=== PATIENT | male | born 1965 | race Two or more races ===

== ENCOUNTER 2016-09-15 07:20 | Emergency (ER) | payer OTHER ==
[~2016-09-15] VITALS: Ht 165.1 cm; Wt 65.8 kg
--- NOTE | 2016-09-15 07:30 | NUR ---
AAOX3, CAME TO ER C/O NAUSEA AND "FEELS LIKE STOMACH ACID" SINCE LAST NIGHT AFTER DRINKING WINE. RESP IS EVEN AND UNLABORED. SKIN IS WARM AND NON DIAPHORETIC. AWAITING MD FOR EVAL.
[2016-09-15] MEDS ORDERED: IV NS 0.9% 1,000 ML ONE (07:35)
[2016-09-15] MEDS ORDERED: IV SET PRIMARY PUMP SET 1 EA INFUS.SET MC ONE (07:35)
[2016-09-15] MEDS ORDERED: PANTOPRAZOLE 40 MG VIAL ONE (07:35)
[2016-09-15] MEDS ORDERED: ONDANSETRON HCL/PF 4 MG/2 ML VIAL ONE (07:35)
[2016-09-15 07:55] LABS: BASOPHILS # (AUTO) 0.1 /CMM (0.0-0.2); BASOPHILS % (AUTO) 0.6 % (0.0-2.0); EOSINOPHILS # (AUTO) 0.1 /CMM (0.0-0.7); EOSINOPHILS % (AUTO) 0.6 % (0.0-6.0); HEMATOCRIT 52 % (39-51); HEMOGLOBIN 17.7 g/dL (13.5-17.5); LYMPHOCYTES # (AUTO) 3.3 /CMM (0.8-4.8); LYMPHOCYTES % (AUTO) 30.1 % (20.0-44.0); MEAN CORPUSCULAR HEMOGLOBIN 30 PG (26.0-33.0); MEAN CORPUSCULAR HGB CONC 34 g/dl (31.0-36.0); MEAN CORPUSCULAR VOLUME 88 fL (80-96); MONOCYTES # (AUTO) 0.7 /CMM (0.1-1.30); MONOCYTES % (AUTO) 6.3 % (2.0-12.0); NEUTROPHILS # (AUTO) 6.7 /CMM (1.8-8.9); NEUTROPHILS % (AUTO) 62.4 % (43.0-81.0); PLATELET COUNT (AUTO) 184 /CMM (150-450); RED BLOOD CELL COUNT(AUTO) 5.84 MIL/uL (4.5-6.0); WHITE BLOOD COUNT (AUTO) 10.8 K/uL (4.3-11.0)
--- NOTE | 2016-09-15 07:55 | NUR ---
LAC #18 IV ACCESS. BLOOD SAMPLE COLLECTED SENT TO LAB
[2016-09-15] MEDS ORDERED: ONDANSETRON HCL/PF 4 MG/2 ML VIAL IVP ONE (08:00)
[2016-09-15] MEDS ORDERED: PANTOPRAZOLE 40 MG VIAL IV ONE (08:00)
[2016-09-15] MEDS ORDERED: IV NS 0.9% 1,000 ML BAG IV ONE (08:00)
[2016-09-15 08:05] LABS: CALCIUM, SERUM 8.5 mg/dL (8.5-10.1); CREATININE 1.2 mg/dL (0.6-1.3); POTASSIUM 3.9 mmol/L (3.5-5.1)
[2016-09-15 08:11] LABS: ALBUMIN 4.3 g/dL (3.4-5.0); BILIRUBIN,DIRECT 0.2 mg/dL (0.0-0.2); TOTAL PROTEIN, SERUM 7.6 g/dL (6.4-8.2)
[2016-09-15] MEDS ORDERED: PROMETHAZINE HCL 25 MG/ML AMPUL ONE (08:21)
[2016-09-15] MEDS ORDERED: PROMETHAZINE HCL 25 MG/ML AMPUL IV ONE (08:30)
--- NOTE | 2016-09-15 08:31 | NUR ---
URINE SAMPLE COLLECTED SENT TO LAB
[2016-09-15 08:37] VITALS: BP 122/68
--- NOTE | 2016-09-15 08:37 | NUR ---
Patient discharged to home in stable condition. Written and verbal after care instructions given. Patient verbalizes understanding of instruction.
--- NOTE | 2016-09-15 08:37 | NUR ---
IV removed. Catheter intact and site benign. Pressure and 4x4 applied to site. No bleeding noted.
[2016-09-15 08:40] LABS: BILIRUBIN,URINE NEGATIVE (NEGATIVE); BLOOD, URINE NEGATIVE Ery/uL (NEGATIVE); COLOR,URINE YELLOW (YELLOW); KETONES,URINE 1+ (NEGATIVE); LEUKOCYTE ESTERASE ,URINE NEGATIVE (NEGATIVE); NITRITE, URINE NEGATIVE (NEGATIVE); PROTEIN,URINE NEGATIVE (NEGATIVE); UGLUCOSE NEGATIVE (NEGATIVE); UROBILINOGEN,URINE 0.2 EU/dL (0.2)
[2016-09-15 08:43] LABS: APPEARANCE,URINE CLEAR (CLEAR)
[2016-09-15 08:51] LABS: BACTERIA,URINE None seen /HPF (None Seen); RBC,URINE 0-2 /HPF (0-2); SQUAMOUS EPITHELIAL CELL,UR Rare /HPF (None Seen); WBC,URINE 0-2 /HPF (0-3)
== END 2016-09-15 08:42 | disposition home or self-care (01) ==
LOC: ER 07:22
DX: K29.20 Alcoholic gastritis without bleeding (principal); F10.10 Alcohol abuse, uncomplicated; F17.210 Nicotine dependence, cigarettes, uncomplicated
CPT/HCPCS: 36415; 80048; 80076; 81001; 83690; 85025; 93005; 96361; 96374; 96375; 99285; A4606; C9113; J2405; J2550; J7030; Z7610; 81000-TC